=== PATIENT | female | born 1980 | race Caucasian/White ===

== ENCOUNTER 2016-12-24 20:36 | Emergency (ER) | payer OTHER ==
[~2016-12-24] VITALS: Ht 154.9 cm; Wt 83.4 kg
[~2016-12-24 20:36] MED LIST: ACID REDUCER 1150 MG PO; ADVIL200 MG PO; Advil,Nuprin,Motrin PO; EFFEXOR XR150 MG PO; ENDOCET 5-3251 EACH PO; FLEXERIL5 MG PO; HYDROCHLOROTHIA25 MG PO; Hydrodiuril,Oretic,E PO; IONAMIN,FASTIN30 MG PO; MOBIC7.5 MG PO; NORCO 5/3251 TABLET PO; OMEPRAZOLE40 M1 PO; ORTHO TRI-CYCL1 EACH PO; OXYCODONE HCL10 MG PO; OXYCONTIN10 MG PO; OXYCONTIN15 MG PO; PERCOCET 10/1 TABLET PO; PERCOCET 5/31 TABLET PO; PHENTERMINE HCL30 MG PO; PREDNISONE10 M1 PO; PRILOSEC40 MG PO; TOPAMAX100 MG PO; TOPAMAX50 MG PO; VALTREX1000 MG PO; VENLAFAXINE HC150 M1 PO; ZANTAC150 MG PO; ZOFRAN ODT8 MG PO; ZOFRAN4 MG PO
[2016-12-24] MEDS ORDERED: ULTRAM50 MG PO (21:39)
[2016-12-24 21:57] VITALS: BP 151/108
== END 2016-12-24 21:59 | disposition home or self-care (01) ==
LOC: EME 20:36
DX: S93.401A Sprain of unspecified ligament of right ankle, initial encounter (principal); W19.XXXA Unspecified fall, initial encounter; X50.9XXA Other and unspecified overexertion or strenuous movements or postures, initial encounter
CPT/HCPCS: 73610; 73630; 99281; 99284

== ENCOUNTER 2017-07-15 15:26 | Emergency (ER) | payer OTHER ==
[~2017-07-15] VITALS: Ht 162.6 cm; Wt 86.0 kg
[~2017-07-15 15:26] MED LIST changes: +ULTRAM50 MG PO
[2017-07-15] MEDS ORDERED: GABAPENTIN400 MG PO (18:30)
[2017-07-15 20:03] VITALS: BP 145/80
== END 2017-07-15 20:04 | disposition home or self-care (01) ==
LOC: EME 15:26
DX: G89.29 Other chronic pain (principal); M79.7 Fibromyalgia; I10 Essential (primary) hypertension; F32.9 Major depressive disorder, single episode, unspecified; F41.9 Anxiety disorder, unspecified; Z86.73 Personal history of transient ischemic attack (TIA), and cerebral infarction without residual deficits
CPT/HCPCS: 99281; 99284; J1885; J2270

== ENCOUNTER 2017-12-18 11:05 | Emergency (ER) | payer OTHER ==
[~2017-12-18] VITALS: Ht 154.9 cm; Wt 84.0 kg
[~2017-12-18 11:05] MED LIST changes: +GABAPENTIN400 MG PO
[2017-12-18 11:22] LABS: HEMATOCRIT 38.9 % (36.0-46.0); HEMOGLOBIN 13.4 G/DL (11.9-15.5); MCHC 34.4 G/DL (30.0-36.0); PLATELET COUNT 320 K/uL (156-360); RBC DIS.WIDTH-CV 12.9 % (11.8-14.6); RBC DIS.WIDTH-SD 41.9 % (39-53); RED BLOOD COUNT 4.32 M/uL (3.80-5.20); WHITE BLOOD COUNT 5.6 K/uL (4.1-10.2)
[2017-12-18 11:31] LABS: ALBUMIN 4.4 g/dL (3.2-4.8)
[2017-12-18 11:32] LABS: CHLORIDE 107 mEq/L (99-109); POTASSIUM 4.2 mEq/L (3.7-5.4); SODIUM 137 mEq/L (136-147)
[2017-12-18 11:34] LABS: GLUCOSE 132 mg/dL (70-99); TOTAL PROTEIN 7.5 g/dL (6.4-8.3)
[2017-12-18 11:36] LABS: TOTAL BILIRUBIN 0.9 mg/dL (0.0-1.0)
[2017-12-18 11:37] LABS: ALKALINE PHOSPHATASE 65 IU/L (3-129)
[2017-12-18 11:38] LABS: CREATININE 0.7 mg/dL (0.6-1.3); GFR ESTIMATE (CALCULATED) > 59 mL/min/
[2017-12-18 11:39] LABS: AST (GOT) 35 IU/L (2-34); UREA NITROGEN (BUN) 8 mg/dL (9-23)
[2017-12-18 11:41] LABS: ALT (GPT) 42 IU/L (3-49); LIPASE 21 U/L (1.0-51.0)
[2017-12-18 11:47] LABS: QUANTITATIVE HCG < 4.0 MIU/ML
[2017-12-18 12:02] LABS: APPEARANCE CLEAR ((CLEAR)); BILIRUBIN NEGATIVE; BLOOD MODERATE; COLOR YELLOW ((YELLOW)); GLUCOSE (STRIP) NEGATIVE; KETONES 5; LEUKOCYTES TRACE; NITRITE NEGATIVE; PROTEIN (STRIP) 30; SPECIFIC GRAVITY 1.023 (1.000-1.030); UROBILINOGEN 0.2 MG/DL (0.2-1.0)
[2017-12-18 12:32] LABS: EPITHELIAL CELLS 2+ /HPF; MUCUS 2+ /LPF; RED BLOOD CELLS RARE /HPF (0-5); WHITE BLOOD CELLS RARE /HPF (0-5)
[2017-12-18 12:33] LABS: BACTERIA RARE /HPF; UCUL ADDED? NO
[2017-12-18] MEDS ORDERED: BENTYL20 MG PO (14:28)
[2017-12-18] MEDS ORDERED: ZOFRAN ODT4 MG PO (14:28)
[2017-12-18 14:37] VITALS: BP 135/79
== END 2017-12-18 14:37 | disposition home or self-care (01) ==
LOC: EME 11:05
DX: A08.4 Viral intestinal infection, unspecified (principal); R10.31 Right lower quadrant pain; G89.29 Other chronic pain; M54.9 Dorsalgia, unspecified; K76.0 Fatty (change of) liver, not elsewhere classified; I10 Essential (primary) hypertension; F41.9 Anxiety disorder, unspecified; F32.9 Major depressive disorder, single episode, unspecified; Z90.49 Acquired absence of other specified parts of digestive tract; Z86.73 Personal history of transient ischemic attack (TIA), and cerebral infarction without residual deficits
CPT/HCPCS: 74177; 80053; 81003; 83690; 84702; 85027; 99281; 99284; J1885; J7030

== ENCOUNTER 2018-02-10 11:20 | Day surgery (SDC) | payer OTHER ==
[~2018-02-10] VITALS: Ht 154.9 cm; Wt 77.6 kg
[~2018-02-10 11:20] MED LIST changes: +BENTYL20 MG PO; +LYRICA75 MG PO; -OXYCODONE HCL10 MG PO; +SEROQUEL12.5 MG PO; +XANAX0.25 MG PO; +ZOFRAN ODT4 MG PO
== END 2018-02-10 13:25 | disposition home or self-care (01) ==
LOC: PAIN 11:20 → SDC 11:45 → PAIN 11:45
DX: M46.1 Sacroiliitis, not elsewhere classified (principal); M46.96 Unspecified inflammatory spondylopathy, lumbar region; M54.16 Radiculopathy, lumbar region; M79.1 Myalgia; G89.29 Other chronic pain; I10 Essential (primary) hypertension; E78.00 Pure hypercholesterolemia, unspecified; R73.03 Prediabetes; E66.3 Overweight; Z68.35 Body mass index [BMI] 35.0-35.9, adult; Z88.6 Allergy status to analgesic agent
CPT/HCPCS: J1030; J2250; S0020